=== PATIENT | male | born 1985 | race Caucasian/White ===

== ENCOUNTER 2017-06-19 13:21 | Emergency (ER) | payer BC ==
--- NOTE | ~2017-06-19 | CT2 ---
[facility] RADIOLOGY TEXT RESULTS PATIENT: SAM DEMARCO LOCATION: SED : 85 UNIT #: [id number] AGE: [address]: Ceferino Lynn MD SEX: M ORDER DR: [id number] [place] [id number] E MR#: [id number] Acc #: [id number] NAME: SAM DEMARCO. : 1985 SEX: M STUDY DATE/TIME: 06/19/2017 15:24 UNIT: SED ROOM: STUDY DESCRIPTION: CT Abd and Pelv W Cont Attending Physician: Ceferino Lynn M.D. Ordering Physician: Ceferino Lynn M.D. MEDICAL IMAGING REPORT This report is preliminary unless electronic signature is present. EXAM Abdomen and pelvis CT with contrast HISTORY Abdominal pain for the past week. TECHNIQUE Axial images were obtained with intravenous contrast. 100 mL of Isovue was used. This CT exam was performed with one or more of the following radiation dose reduction techniques: automatic exposure control, adjustment of mA and/or kV according to patient size, and iterative reconstruction. FINDINGS No upper abdominal solid organ abnormalities are seen. There is no evidence of retroperitoneal adenopathy or ascites. No distended bowel loops are seen. The appendix is normal. Scans of the pelvis show no evidence of pelvic adenopathy, mass or fluid collection. No evidence of inflammatory bowel disease. IMPRESSION Normal. Dictated by... Leon Schroeder M.D. THIS IS AN ELECTRONICALLY VERIFIED REPORT Leon Schroeder M.D. at 06/24/2017 2:13 PM [facility] RADIOLOGY TEXT RESULTS PATIENT: SAM DEMARCO LOCATION: SED : 85 UNIT #: [id number] AGE: [address]: Ceferino Lynn MD SEX: M ORDER DR: Johny TD: 06/19/2017 23:19 JOB #: [id number] MEDICAL IMAGING REPORT Page 1 of 1
[~2017-06-19 13:21] MED LIST: LISINOPRIL10 MG PO; METOPROLOL; NAPROXEN PO; ROBAXIN500 MG PO; VOLTAREN75 MG PO
[2017-06-19 14:38] LABS: URINE SOURCE CLEAN CATCH
[2017-06-19 14:42] LABS: BASOPHIL# 0.1 X10e3 (0-0.3); BASOPHIL% 1.1 % (0-2.5); EOSINOPHIL# 0.2 X10e3 (0-0.7); EOSINOPHIL% 2.8 % (0.0-7.0); HEMATOCRIT 39.8 % (38.0-50.0); HEMOGLOBIN 13.7 gm/dL (13.0-16.0); LYMPHOCYTE# 1.9 X10e3 (1.0-3.5); LYMPHOCYTE% 23.5 % (17.0-45.0); MEAN CELL VOLUME 85.5 FL (83-96); MEAN CORPUSCULAR HEMOGLOBIN 29.6 PG (28-34); MEAN CORPUSCULAR HGB CONC 34.6 g/dL (30-36); MEAN PLATELET VOLUME 8.2 FL (6.5-11.5); MONOCYTE# 0.7 X10e3 (0-1.0); MONOCYTE% 8.8 % (3.0-12.0); NEUTROPHIL# 5.2 X10e3 (1.5-7.1); NEUTROPHIL% 63.8 % (40-75); PLATELET COUNT 245 X10e3 (140-420); RED BLOOD COUNT 4.65 X10e (3.90-5.60); RED CELL DISTRIBUTION WIDTH 12.6 % (11.0-15.5); WHITE BLOOD COUNT 8.1 X10e3 (4.0-10.5)
[2017-06-19 14:45] LABS: DIFF IND NO
[2017-06-19 14:45] LABS: URINE APPEARANCE CLEAR; URINE BILIRUBIN NEG (NEG); URINE BLOOD NEG (NEG); URINE COLOR YELLOW; URINE GLUCOSE NEG (NORM); URINE KETONE NEG (NEG); URINE LEUKOCYTE ESTERASE NEG (NEG); URINE NITRATE NEG (NEG); URINE PROTEIN NEG (NEG); URINE UROBILINOGEN 0.2 MG/DL (NORM)
[2017-06-19 14:49] LABS: MICRO INDICATED? NO
[2017-06-19 15:00] LABS: ALBUMIN SERUM 4.5 g/dL (3.5-5.0); ALKALINE PHOSPHATASE 59 U/L (32-92); ALT (SGPT) 25 U/L (10-40); AST (SGOT) 24 U/L (10-42); BILIRUBIN,TOTAL 0.3 mg/dL (0.2-2.0); BLOOD UREA NITROGEN 18 mg/dL (9-23); CALCIUM SERUM 9.2 mg/dL (8.4-10.2); CARBON DIOXIDE 29 mmol/L (22-31); CHLORIDE 100 mmol/L (100-111); GLOM FILT RATE Estimated 99.2 mL/min (>60); GLUCOSE FASTING 104 mg/dL (70-110); LIPASE 37 U/L (22-51); POTASSIUM 4.1 mmol/L (3.5-5.1); PROTEIN TOTAL SERUM 7.9 g/dL (6.0-8.3); SODIUM 137 mmol/L (135-145)
[2017-06-19 15:07] LABS: BILIRUBIN, DIRECT <0.1 mg/dL (0.0-0.2); BILIRUBIN,INDIRECT 0.2 mg/dL (0.0-0.9)
== END 2017-06-19 16:29 | disposition home or self-care (01) ==
LOC: SED 13:21
PROVIDERS: Emergency Medicine
DX: K29.00 Acute gastritis without bleeding (principal)
CPT/HCPCS: 36415; 74177; 80048; 80076; 81003; 83690; 85025; 96374; 96375; 99284; J2405; Q9967

== ENCOUNTER → 2017-07-14 | Outpatient (CLI) | payer BC ==
--- NOTE | ~2017-07-14 | US115 ---
[facility] A Service of [facility] RADIOLOGY TEXT RESULTS PATIENT: SAM DEMARCO LOCATION: [facility] : 85 UNIT #: [id number] AGE: [address]: Roge Post MD SEX: M ORDER DR: [id number] [facility] [address] [place], [place] [address] [id number] O MR#: [id number] Acc #: [id number] NAME: SAM DEMARCO : 1985 SEX: M STUDY DATE/TIME: 07/14/2017 14:55 UNIT: [facility] ROOM: STUDY DESCRIPTION: US Scrotum and Contents Attending Physician: Roge Post M.D. Referring Physician: Roge Post M.D. Ordering Physician: Roge Post M.D. Primary Care Physician: Roge Post M.D. MEDICAL IMAGING REPORT This report is preliminary unless electronic signature is present EXAM Scrotal ultrasound with Doppler. HISTORY Testicular pain bilaterally for 3 weeks. No injury. FINDINGS Ultrasound examination of the scrotum and testes was performed with warren-scale and Doppler. There is no testicular mass or enlargement. Normal blood flow to both testes on color Doppler. No extratesticular mass or fluid collection. No epididymal abnormality. IMPRESSION Normal ultrasound examination of the scrotum and testes. Dictated by... Noah Irwin M.D. THIS IS AN ELECTRONICALLY VERIFIED REPORT Noah Irwin M.D. at 07/15/2017 2:26 PM DFCarmen/janna TD: 07/15/2017 11:10 JOB #: [id number] MEDICAL IMAGING REPORT Page 1 of 1 COPY
== END | disposition home or self-care (01) ==
LOC: CGUS 14:45
DX: N50.819 Testicular pain, unspecified (principal)
CPT/HCPCS: 76870; 93976